=== PATIENT | female | born 1985 | race Caucasian/White ===

== ENCOUNTER → 2021-12-16 | Outpatient (CLI) | payer MEDICARE, OTHER ==
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
== END | disposition home or self-care (01) ==
LOC: RADMRIMAIN 10:15
PROVIDERS: ATTEND Physician Assistant
DX: R51.9 Headache, unspecified (principal)
CPT/HCPCS: 70551

== ENCOUNTER → 2022-09-11 | Outpatient (CLI) | payer MEDICARE, OTHER ==
--- NOTE | 2022-09-11 19:01 | MR ---
EXAMINATION TYPE: MR cervical spine wo con DATE OF EXAM: 09/11/2022 COMPARISON: HISTORY: Migraine CONTRAST: Performed utilizing mL intravenous gadolinium contrast. TECHNIQUE: Multiplanar multiecho imaging on a 3.0 Matilda magnet is performed through the cervical spin e. FINDINGS: The craniovertebral junction is normal. Vertebral body alignment is normal. C7-T1: No focal disc herniation or significant disc bulge is evident. No spinal canal stenosis or n eural foraminal stenosis is present. C6-7: No focal disc herniation or significant disc bulge is evident. No spinal canal stenosis or james ral foraminal stenosis is present. C5-6: Broad-based disc herniation with extent over the C6 vertebral level is present slightly greater in the right paracentral region. This has mild anterior thecal sac compression. Cord contact may be present, cord deformity is not clearly identified. Minimal increased signal may be present on sagitta l T2 weighted sequences within the cord at the level of the disc herniation. No spinal canal stenosis present. Uncovertebral joint hypertrophy with moderate bilateral foraminal stenosis. C4-5: Disc bulge is mild anterior thecal sac compression. No spinal canal stenosis or neural foramina l stenosis is present.. C3-4: Central bulge is present. No cord contact or spinal canal stenosis present. Neural foramen are patent. C2-3: No focal disc herniation or significant disc bulge is evident. No spinal canal stenosis or james ral foraminal stenosis is present. IMPRESSIONS: 1. Disc herniation with cord contact at C5-6. No spinal canal stenosis is present. Some signal abnorm ality may be within the spinal cord. 2. Milder disc bulges C4-5, C3-4 without cord contact or spinal canal stenosis.
== END | disposition home or self-care (01) ==
LOC: RADMRIMAIN 11:39
PROVIDERS: ATTEND Family Medicine
DX: G43.909 Migraine, unspecified, not intractable, without status migrainosus (principal); M50.322 Other cervical disc degeneration at C5-C6 level
CPT/HCPCS: 72141

== ENCOUNTER → 2023-10-25 | Outpatient (CLI) | payer MEDICARE, OTHER ==
--- NOTE | 2023-10-28 23:17 | MR ---
EXAMINATION TYPE: MR cervical spine wo con DATE OF EXAM: 10/25/2023 10:12 PM CLINICAL INDICATION:Female, 38 years old with history of G95.9; PHH, Abnormal prior MRI, abnormal cor d signal. COMPARISON: 09/11/2022. TECHNIQUE: Multi planar, multi sequence imaging was performed utilizing: T1-weighted, T2-weighted, an d turbo inversion recovery imaging of the cervical spine. IV Contrast: cc (none if empty) FINDINGS: Alignment: The cervical vertebral bodies have preserved heights. Alignment is within normal limits gi [facility] patient positioning. Bones: Scattered Modic endplate changes with osteophytes and disc space narrowing. Multilevel degener ative disc disease is noted and most pronounced at the C5-C7 vertebral levels. Cord: The spinal cord is unremarkable with regards to their signal intensity and morphology. Discs: Multilevel disc desiccation is present. C2-C3: No significant disc pathology. The spinal canal is patent. No neural foraminal stenosis. C3-C4: No significant disc pathology. The spinal canal is patent. No neural foraminal stenosis. C4-C5: No significant disc pathology. The spinal canal is patent. Bilateral facet and uncovertebral joint arthropathy are present with mild bilateral neural foraminal stenosis. C5-C6: A disc osteophyte complex is present with mild to moderate spinal canal stenosis. Bilateral f acet and uncovertebral joint arthropathy are present with moderate right and mild left neural foramin al stenosis. C6-C7: No significant disc pathology. The spinal canal is patent. No neural foraminal stenosis. C7-T1: No significant disc pathology. The spinal canal is patent. No neural foraminal stenosis. Other: None. IMPRESSION: 1. Cord signal is maintained, No evidence for disc herniation or significant spinal canal stenosis. 2. Mild disc degeneration with associated osteoarthritic changes worse at C5-C6 with mild to moderate spinal canal stenosis and moderate right neural foraminal stenosis. Finding not significantly change d from 2021.
== END | disposition home or self-care (01) ==
LOC: RADMRIMAIN 20:00
PROVIDERS: ATTEND Neurological Surgery
DX: M50.322 Other cervical disc degeneration at C5-C6 level (principal); M47.812 Spondylosis without myelopathy or radiculopathy, cervical region; M48.02 Spinal stenosis, cervical region; G95.9 Disease of spinal cord, unspecified; M99.71 Connective tissue and disc stenosis of intervertebral foramina of cervical region
CPT/HCPCS: 72141